=== PATIENT | male | born 1940 | race Caucasian/White ===

== ENCOUNTER 2021-05-17 17:27 | Emergency (ER) | payer MEDICARE ==
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
[2021-05-17 19:05] LABS: Basophils % (Auto) 0.6 % (0.0-1.8); Eosinophils % (Auto) 0.2 % (0.0-4.3); Hematocrit 37.3 % (35.5-45.6); Hemoglobin 12.6 gm/dl (11.8-15.2); Lymphocytes # (Auto) 1.6 K/mm3 (1.2-5.4); Lymphocytes % (Auto) 32.6 % (13.4-35.0); Mean Corpuscular HGB Conc 34 % (32-34); Mean Corpuscular Volume 90 fl (84-94); Monocytes # (Auto) 0.6 K/mm3 (0.0-0.8); Monocytes % (Auto) 11.5 % (0.0-7.3); Platelet Count 200 K/mm3 (140-440); Red Blood Count 4.12 M/mm3 (3.65-5.03); Red Cell Distribution Width 14.4 % (13.2-15.2)
--- NOTE | 2021-05-17 19:07 | Cat Scan Report ---
CT head/brain wo con INDICATION / CLINICAL INFORMATION: 80 years Male; fall. TECHNIQUE: Routine CT head without contrast. All CT scans at this location are performed using CT dos e reduction for ALARA by means of automated exposure control. COMPARISON: None. FINDINGS: BRAIN / INTRACRANIAL CONTENTS: There is extensive cerebral white matter disease most consistent with microvascular angiopathy. There is also moderate cerebral atrophy with associated prominence of the v entricular system. There is symmetric calcification along the tentorium as well as the falx. There is no clear CT evidence of acute intracranial hemorrhage or significant mass effect. ORBITS: No significant abnormality of visualized orbits. SINUSES / MASTOIDS: There is notable scattered opacification involving ethmoid air cells. There is mo derate mucosal thickening within the right maxillary sinus with mild thickening on the left. Mild muc osal thickening is also seen along the inferior sphenoid sinuses. CRANIOCERVICAL JUNCTION: No significant abnormality. ADDITIONAL FINDINGS: There is asymmetric fatty atrophy of the left parotid gland at. There is tubular radiopacity which appears reflect stent at within the duct. IMPRESSION: 1. 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 2. There is sinus inflammatory disease as detailed above. Signer Name: Alfredo Moreno MD Signed: 05/17/2021 7:03 PM Workstation Name: [id number]
--- NOTE | 2021-05-17 19:14 | XRay Report ---
XR chest 1V ap INDICATION / CLINICAL INFORMATION: dizziness. COMPARISON: None available. FINDINGS: SUPPORT DEVICES: None. HEART /PULMONARY VASCULATURE: No significant abnormality. LUNGS / PLEURA: No significant pulmonary or pleural abnormality. No pneumothorax. IMPRESSION: 1. No acute findings. Signer Name: Yves Marrero MD Signed: 05/17/2021 7:09 PM Workstation Name: [id number]
[2021-05-17 19:17] LABS: INR 1.02 (0.87-1.13)
[2021-05-17 19:18] LABS: Partial Thromboplastin Time 35.4 Sec. (24.2-36.6)
[2021-05-17 19:29] LABS: Alanine Aminotransferase 15 units/L (7-56); Albumin 4.3 g/dL (3.9-5); BUN/Creatinine Ratio 22; Blood Urea Nitrogen 20 mg/dL (9-20); Calcium 10.1 mg/dL (8.4-10.2); Hemolysis Index 3
--- NOTE | 2021-05-18 10:25 | Electrocardiograph Report ---
[facility] Test Date: 2021-05-17 Test Time: 18:08:25 Pat Name: RUFINA PLEITEZ Department: Room: Gender: M Technical Training Specialist: GP : [id number] Requested By: MARCELINA BLUE Order Number: [id number] Reading MD: Kevin Payne Measurements Intervals [place] Rate: 95 P: 66 AR: 154 QRS: 76 QRSD: 115 T: 43 QT: 379 QTc: 478 Interpretive Statements Sinus rhythm Incomplete right bundle branch block Borderline ST elevation, lateral leads No previous ECG available for comparison Electronically Signed On 05-18-2021 10:25:14 EDT by Kevin Payne
[2021-05-18 11:51] LABS: Bilirubin,Urine NEG (Negative); Blood,Urine NEG (Negative); Color,Urine Yellow (Yellow); Mucus,Urine FEW /HPF; Protein,Urine <15 mg/dL mg/dL (Negative)
[2021-05-19 15:52] VITALS: BP 138/77
== END 2021-05-19 16:16 | disposition home or self-care (01) ==
LOC: ED 17:27
DX: R55 Syncope and collapse (principal); E11.9 Type 2 diabetes mellitus without complications
CPT/HCPCS: 36415; 70450; 71045; 80053; 81001; 84443; 85025; 85610; 85730; 93005; 99285